=== PATIENT | male | born 1985 | race African-American/Black ===

== ENCOUNTER 2022-09-05 09:00 | Outpatient (CLI) | payer OTHER, SELFPAY ==
--- NOTE | ~2022-09-05 | XR_ITS ---
EXAMINATION: XR hip RT min 2V DATE: 09/05/2022 10:00 INDICATION: Posterolateral right hip pain TECHNIQUE: Anteroposterior and frog-leg lateral views of the right hip were obtained. COMPARISON: None. FINDINGS: Alignment is normal. No fracture or suspected avascular necrosis. Right hip joint space is normal. Sm all right os acetabulum. A few phleboliths in the right hemipelvis. Soft tissues are otherwise unrema rkable. IMPRESSION: 1. Small right os acetabulum. Otherwise unremarkable right hip radiographs. Reviewed, dictated and finalized at location B.
== END 2022-09-05 09:01 | disposition home or self-care (01) ==
PROVIDERS: PCP Nurse Practitioner Family; Visit Provider Nurse Practitioner Family
DX: M41.9 Scoliosis, unspecified (principal); M25.551 Pain in right hip
CPT/HCPCS: 73502

== ENCOUNTER 2022-09-11 08:40 | Outpatient (CLI) | payer OTHER, SELFPAY ==
--- NOTE | ~2022-09-11 | XR_ITS ---
EXAMINATION: XR scoliosis survey DATE: 09/11/2022 09:12 INDICATION: Scoliosis. TECHNIQUE: Anteroposterior and lateral views of the entire spine standing were obtained. COMPARISON: None. FINDINGS: Left femoral head stands 8 mm higher than the right. There are 12 pairs of ribs. There are 5 nonrib-bearing lumbar segments. There is 27 degrees dextroscoliosis from T4 to T9 by the Brooks metho d. There is 25 degrees levoscoliosis from T9 to L1. IMPRESSION: 1. Left femoral head stands 8 mm higher than the right. 2. Scoliosis. Reviewed, dictated and finalized at location A. [facility]ER
== END 2022-09-11 08:41 | disposition home or self-care (01) ==
PROVIDERS: PCP Nurse Practitioner Family; Visit Provider Nurse Practitioner Family
DX: M25.551 Pain in right hip (principal); M41.84 Other forms of scoliosis, thoracic region; M21.752 Unequal limb length (acquired), left femur
CPT/HCPCS: 72082